=== PATIENT | female | born 1965 | race Caucasian/White ===

== ENCOUNTER 2017-04-11 10:52 | Emergency (ER) | payer OTHER ==
[2017-04-11 11:06] VITALS: RESP 16; TEMP 97.7
[2017-04-11] MEDS ORDERED: NS 1,000 ML IV ONE (11:32)
[2017-04-11] MEDS ORDERED: methylPREDNISolone SOD SUCC 125 MG/2 ML VIAL IVP ONE (11:33)
[2017-04-11] MEDS ORDERED: FAMOTIDINE 20 MG/2 ML SDV IVP ONE (11:33)
[2017-04-11] MEDS ORDERED: NS 100 ML BAG IV ONE (12:16)
--- NOTE | 2017-04-11 13:05 | EDPHY ---
H & P Time Seen by Provider: 04/11/17 10:57 HPI/ROS: 51-year-old female presents complaining of 2 days of feeling horse and a sensation that she may have some swelling of her most posterior tongue. She states she has been giving her dogs antibiotics which she prepares with her hands and wonders if this could have caused an allergic reaction. She has a history of multiple allergies and multiple prior allergic reactions. No difficulty breathing. No rash Review of systems As per HPI General no fever no chills no weakness HEENT no eye pain no eye discharge. No eye redness, no sore throat Respiratory no cough, no shortness of breath Cardiac no chest pain, no peripheral edema GI no abdominal pain, no diarrhea, no constipation, no nausea, no vomiting no flank pain, no hematuria, no dysuria Musculoskeletal no myalgias, no joint pain Heme no easy bruising, no easy bleeding Endo no polyuria, no polydipsia Skin no rashes, no pruritus Neuro no syncope, no dizziness, no headaches Psych is no suicidal ideation, no homicidal ideation Past Medical/Surgical History: Multiple allergies including shellfish in multiple medications Social History: Denies alcohol or drug use Smoking Status: Never smoked Physical Exam: 51-year-old female alert and oriented no acute distress nontoxic appearance afebrile No stridor, no audible wheezing, no rash HEENT atraumatic normocephalic, extraocular muscles intact, anicteric Oropharynx negative for erythema negative exudate, tolerating her own secretions Neck supple no meningismus Lungs clear to auscultation bilaterally Heart regular rate and rhythm without murmur rub or gallop Abdomen nondistended normoactive bowel sounds soft nontender Back no CVA tenderness, no step-offs, no spinal tenderness Extremities no cyanosis clubbing or edema Neuro alert and oriented, no focal deficits Constitutional: Initial Vital Signs Temperature (C) 36.5 C 04/11/17 10:57 Heart Rate 70 04/11/17 10:57 Respiratory Rate 16 04/11/17 10:57 Blood Pressure 104/76 04/11/17 10:57 O2 Sat (%) 98 04/11/17 10:57 O2 Delivery Mode Room Air Allergies/Adverse Reactions: Shellfish *RETIRED-03/18/12 [Shellfish] Allergy (Intermediate, Verified 11:12) Hives Penicillins Allergy (Mild, Verified 04/11/17 11:12) Hives Quinolones Allergy (Mild, Verified 04/11/17 11:12) Hives azithromycin [Azithromycin] Allergy (Verified 04/11/17 11:12) clindamycin [Clindamycin] Allergy (Verified 04/11/17 11:12) Macrolide Antibiotics Allergy (Verified 04/11/17 11:12) nickel Allergy (Verified 04/11/17 11:12) ofloxacin [From Floxin] Allergy (Verified 04/11/17 11:12) KETOLIDES Allergy (Uncoded 04/11/17 11:12) demetria Allergy (Uncoded 04/11/17 11:12) nickel Allergy (Uncoded 04/11/17 11:13) Home Medications: Medication Instructions Recorded Albuterol 04/16/09 LOESTRIN 24 FE TABLET 04/16/09 Prevacid 04/11/17 methylPREDNISolone [Medrol Dose 1 each PO AD #1 ea 04/11/17 Jeffery] Medical Decision Making ED Course/Re-evaluation: Patient seen and evaluated for hoarseness, possible posterior tongue swelling, possible allergic reaction. Physical exam benign Patient symptomatic and with a quite significant history of allergic reaction. Patient given IV normal saline 1 L, Solu-Medrol 125 mg IV push, famotidine 20 mg IV push and diphenhydramine 25 mg IV push Patient observed for greater than 1 hour without progression of symptoms. Impression Possibly early allergic reaction Plan Discharge Medrol Dosepak Benadryl p.r.n. - Data Points Medications Given: Discontinued Medications Diphenhydramine HCl (Benadryl Injection) 25 mg IVP EDNOW ONE Stop: 04/11/17 11:33 Last Admin: 04/11/17 12:08 Dose: 25 mg Famotidine (Pepcid) 20 mg IVP EDNOW ONE Stop: 04/11/17 11:34 Last Admin: 04/11/17 12:17 Dose: 20 mg Sodium Chloride (Ns) 1,000 mls @ 0 mls/hr IV ONCE ONE PRN Reason: Wide Open Stop: 04/11/17 11:33 Last Admin: 04/11/17 12:04 Dose: 1,000 mls Methylprednisolone Sodium Succinate (Solu-Medrol) 125 mg IVP EDNOW ONE Stop: 04/11/17 11:34 Last Admin: 04/11/17 12:11 Dose: 125 mg Departure - Departure Disposition: Home, Routine, Self-Care Clinical Impression: Allergic reaction Condition: Good Instructions: General Allergic Reaction (ED) Referrals: Alesha Antony MD [Primary Care Provider] - As per Instructions Prescriptions: methylPREDNISolone [Medrol Dose Jeffery] 1 each PO AD #1 ea
[2017-04-11 13:29] VITALS: BP 131/74; PULSE 76; O2SAT 96
== END 2017-04-11 13:27 | disposition home or self-care (01) ==
LOC: CED 10:52
DX: T78.40XA Allergy, unspecified, initial encounter (principal)
CPT/HCPCS: 96374; J1200